=== PATIENT | male | born 1950 | race Caucasian/White ===

== ENCOUNTER 2018-03-17 17:50 | Emergency (ER) | payer OTHER ==
[~2018-03-17] VITALS: Ht 167.6 cm; Wt 88.5 kg
[2018-03-17 18:04] VITALS: Ht 167.6 cm; Wt 88.5 kg
[2018-03-17 21:35] VITALS: BP 142/78
== END 2018-03-17 21:35 | disposition home or self-care (01) ==
LOC: ED 17:50
DX: S01.01XA Laceration without foreign body of scalp, initial encounter (principal); I10 Essential (primary) hypertension; E11.9 Type 2 diabetes mellitus without complications; E78.00 Pure hypercholesterolemia, unspecified; W22.8XXA Striking against or struck by other objects, initial encounter; Y93.89 Activity, other specified; Y92.89 Other specified places as the place of occurrence of the external cause; Y99.8 Other external cause status

== ENCOUNTER 2018-03-24 11:22 | Emergency (ER) | payer OTHER ==
[~2018-03-24] VITALS: Ht 167.6 cm; Wt 88.9 kg
[2018-03-24 11:32] VITALS: Ht 167.6 cm; Wt 88.9 kg
== END 2018-03-24 11:48 | disposition home or self-care (01) ==
LOC: ED 11:22
DX: S01.01XD Laceration without foreign body of scalp, subsequent encounter (principal); W22.8XXD Striking against or struck by other objects, subsequent encounter